=== PATIENT | female | born 1990 | race Caucasian/White ===

== ENCOUNTER 2023-05-28 20:20 | Emergency (ER) | payer OTHER ==
[~2023-05-28] VITALS: Ht 172.7 cm; Wt 113.0 kg
[2023-05-28 21:44] LABS: BASO% 0.1 % (0-3); EOS% 0.1 % (0-8); HEMATOCRIT 40.5 % (37.0-47.0); HEMOGLOBIN 13.2 g/dl (12.0-16.0); IMMATURE GRANULOCYTES 0.3 % (0.0-5.0); MEAN CELL VOLUME 83.5 fL CALC (80.0-100.0); MEAN CORPUSCULAR HGB 27.2 pG CALC (26.0-32.0); MEAN CORPUSCULAR HGB CONC 32.6 g/dL CAL (32.0-36.0); MONO% 4.3 % (2-13); NEUT# 8.7 thou/uL (2.00-7.15); NEUT% 84.2 % (42-76); RED BLOOD COUNT 4.85 mill/uL (4.20-5.60); RED CELL DISTRI WIDTH 14.1 % (11.5-15.5)
[2023-05-28 21:53] VITALS: BP 137/95
[2023-05-28 21:54] LABS: ALBUMIN 4.5 g/dL (3.2-5.0); ALKALINE PHOSPHATASE 115 u/l (38-126); ANION GAP 13 (6-22 (CALC)); BILIRUBIN, TOTAL 0.7 mg/dL (0.02-1.3); BUN 8 mg/dL (7-17); BUN/CREATININE RATIO 14 (12-20 (CALC)); CARBON DIOXIDE 23 mmol/l (22-30); CHLORIDE 110 mmol/l (95-108); CREATININE 0.6 mg/dL (0.5-1.0); GFR FOR AFR.AMER. > 60 ML/MIN (>=60 (CALC)); GFR OTHER RACES > 60 ML/MIN (>=60 (CALC)); LIPASE 55 u/l (23-300); POTASSIUM 3.8 mmol/l (3.5-5.1); SGOT/AST 46 u/l (14-36); SODIUM 143 mmol/l (137-146); TOTAL PROTEIN 7.4 g/dL (6.3-8.2)
[2023-05-28 22:01] VITALS: BP 140/92
[2023-05-29 01:00] LABS: URINE BILIRUBIN - DIPSTICK Negative (NEGATIVE); URINE BLOOD DIPSTICK Negative (NEGATIVE); URINE GLUCOSE - DIPSTICK Negative (NEGATIVE); URINE KETONE 15 mg/dL (NEGATIVE); URINE LEUK ESTERASE Negative (NEGATIVE); URINE NITRITE - DIPSTICK Negative (Negative); URINE PH 6.5 (4.5-8.0); URINE PROTEIN - DIPSTICK Trace mg/dL (NEG-TRACE); URINE SPECIFIC GRAVITY 1.015
[2023-05-29 01:02] LABS: URINE COLOR Yellow
[2023-05-29] MEDS ORDERED: ZOFRAN4 MG/TAB PO (01:12)
[2023-05-29] MEDS ORDERED: DICYCLOMINE HCL20 MG PO (01:12)
[2023-05-29] MEDS ORDERED: LAMICTAL100 M1 PO (01:26)
[2023-05-29] MEDS ORDERED: METHYLPRED4 MG PO (01:27)
[2023-05-29] MEDS ORDERED: FLUCONAZOLE150 MG PO (01:28)
[2023-05-29] MEDS ORDERED: KENALOG15 GM/TUBE EX (01:28)
[2023-05-29 01:55] VITALS: BP 134/88
== END 2023-05-29 01:55 | disposition home or self-care (01) ==
LOC: ED 20:20
PROVIDERS: Internal Medicine
DX: R10.9 Unspecified abdominal pain (principal); R11.10 Vomiting, unspecified; R74.8 Abnormal levels of other serum enzymes
CPT/HCPCS: Q9967

== ENCOUNTER 2024-12-24 11:45 | Emergency (ER) | payer OTHER ==
[2024-12-24] VITALS (11 sets, daily range): BP systolic 128–152; BP diastolic 84–112
[~2024-12-24] VITALS: Ht 167.6 cm; Wt 117.9 kg
[~2024-12-24 11:45] MED LIST: ATORVASTATIN CA20 MG PO; D2000 ULTRA2000 UNIT PO; DICYCLOMINE HCL20 MG PO; DULOXETINE HCL60 MG PO; FLUCONAZOLE150 MG PO; HYDROXYZINE HCL50 MG PO; KENALOG15 GM/TUBE EX; LAMICTAL100 M1 PO; LATUDA20 MG PO; METHYLPRED4 MG PO; OMEPRAZOLE DR40 MG PO; TRILEPTAL150 M1 PO; VENTOLIN HFA108 MCG IN; ZOFRAN4 MG/TAB PO
[2024-12-24] MEDS ORDERED: AMOXICILLIN500 M2 PO (16:26)
[2024-12-24] MEDS ORDERED: DIFLUCAN150 MG PO (16:26)
== END 2024-12-24 16:35 | disposition home or self-care (01) ==
LOC: ED 11:45
DX: J40 Bronchitis, not specified as acute or chronic (principal); H91.90 Unspecified hearing loss, unspecified ear; Z72.0 Tobacco use; Z20.822 Contact with and (suspected) exposure to COVID-19